=== PATIENT | male | born 1995 | race Caucasian/White ===

== ENCOUNTER 2021-10-02 11:02 | Emergency (ER) | payer OTHER ==
[~2021-10-02] VITALS: Ht 188 cm; Wt 100.0 kg
[2021-10-02 11:05] VITALS: BP 139/100
== END 2021-10-02 12:10 | disposition home or self-care (01) ==
LOC: EEVIPCON 11:02 → ER 11:02
DX: S09.90XA Unspecified injury of head, initial encounter (principal); W19.XXXA Unspecified fall, initial encounter; Y93.89 Activity, other specified; Y92.89 Other specified places as the place of occurrence of the external cause; Y99.8 Other external cause status
CPT/HCPCS: 99281